=== PATIENT | male | born 1990 | race African-American/Black ===

== ENCOUNTER 2018-06-12 22:57 | Emergency (ER) | payer SELFPAY ==
--- NOTE | 2018-06-13 02:04 | ER Document Report ---
ED General - General Chief Complaint: Foot Pain Stated Complaint: FOOT PAIN Time Seen by Provider: 06/13/18 01:30 Notes: Patient is a 27-year-old male without chronic medical problems who presents with several years of chronic foot issues on the left side. The patient reports that for many years he has gotten cracks between his toes, forearm large corns along the medial side of his great toe and that these areas have become increasingly painful over the last several weeks. He notes a dull, stabbing, constant pain particularly between a wound between his fourth and fifth digits of the left foot. He has not noted any drainage from the ear, spreading redness, fever or constitutional symptoms. Nothing seems to improve or worsening symptoms. He has not seen his general doctor or senior quality control inspector regarding these issues. TRAVEL OUTSIDE OF THE [place] IN LAST 30 DAYS: No - Related Data Allergies/Adverse Reactions: No Known Allergies Allergy (Unverified 06/13/18 01:54) Past Medical History - General Information source: Patient - Social History Smoking Status: Current Every Day Smoker Chew tobacco use (# tins/day): No Frequency of alcohol use: None Drug Abuse: None Family History: Reviewed & Not Pertinent Patient has suicidal ideation: No Patient has homicidal ideation: No Renal/ Medical History: Denies: Hx Peritoneal Dialysis Review of Systems - Review of Systems Notes: Constitutional: Negative for fever. HENT: Negative for sore throat. Eyes: Negative for visual changes. Cardiovascular: Negative for chest pain. Respiratory: Negative for shortness of breath. Gastrointestinal: Negative for abdominal pain, vomiting or diarrhea. Genitourinary: Negative for dysuria. Musculoskeletal: Positive for left foot pain Skin: Negative for rash. Neurological: Negative for headaches, weakness or numbness. 10 point ROS negative except as marked above and in HPI. Physical Exam - Vital signs Vitals: Temp Pulse Resp BP Pulse Ox 97.9 F 86 18 123/69 100 06/12/18 23:27 06/12/18 23:27 06/12/18 23:27 06/12/18 23:27 06/12/18 23:27 Interpretation: Normal Notes: PHYSICAL EXAMINATION: GENERAL: Well-appearing, well-nourished and in no acute distress. HEAD: Atraumatic, normocephalic. EYES: sclera anicteric, conjunctiva are normal. ENT: Moist mucous membranes. NECK: Normal range of motion LUNGS: Normal work of breathing HEART: 2+ DP pulses bilaterally. EXTREMITIES: no pitting or edema. There is a large corn to the medial aspect of the base of the great toe on the left. There is a split of soft tissue with maceration of the associated tissue between the fourth and fifth digits of the left foot without surrounding erythema or drainage. NEUROLOGICAL: No focal neurological deficits. Moves all extremities spontaneously and on command. PSYCH: Normal mood, normal affect. SKIN: Warm, Dry, normal turgor, no rashes or lesions noted. Course - Re-evaluation Re-evalutation: 06/13/18 02:42 Presentation of a well-appearing 27-year-old male in no distress complaining of corns to his feet as well as an open wound between his fourth and fifth digits. This appears to be related to poor fitting shoes as well as excessive moisture to the feet. X-ray without any evidence of osteomyelitis or an osteophyte. I have recommended conservative management and have reviewed this at length with the patient. There is no evidence of associated cellulitis, fungal infection or any alternative life-threatening pathology at this time point. I do not feel any labs are indicated. At this time will discharge with return precautions and follow-up recommendations. Verbal discharge instructions given a the bedside and opportunity for questions given. Medication warnings reviewed. Patient is in agreement with this plan and has verbalized understanding of return precautions and the need for primary care follow-up in the next 24-72 hours. - Vital Signs Vital signs: Temp Pulse Resp BP Pulse Ox 97.9 F 86 18 123/69 100 06/12/18 23:27 06/12/18 23:27 06/12/18 23:27 06/12/18 23:27 06/12/18 23:27 - Diagnostic Test Radiology reviewed: Image reviewed, Reports reviewed Radiology results interpreted by me: 06/13/18 02:42 Left foot x-ray: No acute fracture, osteomyelitis or dislocations. Discharge - Discharge Clinical Impression: Left foot pain, Corns of multiple toes Condition: Good Disposition: HOME, SELF-CARE Additional Instructions: You should use Dermoplast spray which can be purchased [id number] to the cut at the base of your fifth toe to help relieve discomfort. I would recommend applying baby powder or athlete's foot powder to your foot prior to placing the foot in a sock. I would bandage the areas of corns along your great toe. Please be sure that her 2 shoes are fitting properly as it appears that you are having rubbing along the inner aspect of your foot. You should also consider follow-up with podiatry. Your x-ray is normal. Return for any additional concerns he may have including spreading redness, fever, worsening pain, or any other symptoms that are worrisome to you.
--- NOTE | 2018-06-13 03:05 | RADIOLOGY REPORT (SQ) ---
EXAM DESCRIPTION: XR FOOT 1-2 VIEWS COMPLETED DATE/TME: 06/13/2018 01:54 CLINICAL HISTORY: 27 years, Male, great toe pain COMPARISON: None. FINDINGS: 3 views of the left foot. No acute fracture or dislocation. Normal osseous mineralization. The tarsals and metatarsals appear appropriately aligned. IMPRESSION: No acute fracture or dislocation. 2011 [employer]- All Rights Reserved
[2018-06-13 03:22] VITALS: BP 119/66
== END 2018-06-13 03:25 | disposition home or self-care (01) ==
LOC: ER 22:57
DX: L84 Corns and callosities (principal); L98.8 Other specified disorders of the skin and subcutaneous tissue; M79.672 Pain in left foot; F17.200 Nicotine dependence, unspecified, uncomplicated
CPT/HCPCS: 99283

== ENCOUNTER 2018-07-20 15:09 | Emergency (ER) | payer SELFPAY ==
[2018-07-20] MEDS ORDERED: RINGERS SOLUTION,LACTATED 1,000 ML IV ONE (15:57)
[2018-07-20 16:48] LABS: ABSOLUTE BASOPHILS # (AUTO) 0.1 10^3/uL (0.0-0.2); ABSOLUTE EOSINOPHILS # (AUTO) 0.2 10^3/uL (0.0-0.6); ABSOLUTE LYMPHOCYTES (AUTO) 1.8 10^3/uL (0.5-4.7); ABSOLUTE MONOCYTES (AUTO) 0.4 10^3/uL (0.1-1.4); ABSOLUTE NEUT (AUTO) 4.2 10^3/uL (1.7-8.2); EOSINOPHILS % (AUTO) 2.7 % (0-6); HEMATOCRIT 41.7 % (37.9-51.0); HEMOGLOBIN 14.1 g/dL (13.5-17.0); MEAN CORPUSCULAR HEMOGLOBIN 29.5 pg (27.0-33.4); MEAN CORPUSCULAR HGB CONC 33.8 g/dL (32.0-36.0); MEAN CORPUSCULAR VOLUME 87 fl (80-97); MONOCYTES % (AUTO) 6.4 % (3-13); PLATELET COUNT 184 10^3/uL (150-450); RED BLOOD COUNT 4.77 10^6/uL (4.35-5.55); RED CELL DISTRIBUTION WIDTH 13.7 % (11.5-14.0); SEGMENTED NEUTROPHILS % (AUTO) 62.9 % (42-78); TOTAL CELLS COUNTED % (AUTO) 100 %; WHITE BLOOD COUNT 6.6 10^3/uL (4.0-10.5)
[2018-07-20 17:17] LABS: ALANINE AMINOTRANSFERASE 28 U/L (21-72); ALBUMIN 4.3 g/dL (3.5-5.0); ALKALINE PHOSPHATASE 40 U/L (38-126); ANION GAP 8 (5-19); ASPARTATE AMINO TRANSFERASE 21 U/L (17-59); BILIRUBIN,DIRECT 0.4 mg/dL (0.0-0.4); BILIRUBIN,TOTAL 0.7 mg/dL (0.2-1.3); BLOOD UREA NITROGEN 11 mg/dL (7-20); CALCIUM 9.3 mg/dL (8.4-10.2); CARBON DIOXIDE 31 mmol/L (22-30); CHLORIDE 102 mmol/L (98-107); GLUCOSE 102 mg/dL (75-110); POTASSIUM 3.5 mmol/L (3.6-5.0); SODIUM 140.8 mmol/L (137-145); TOTAL PROTEIN 7.2 g/dL (6.3-8.2)
[2018-07-20 17:37] VITALS: BP 113/59
--- NOTE | 2018-07-20 17:53 | ER Document Report ---
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 By the time he came to the ER feeling much more comfortable dizziness and lightheadedness have dissipated. Onset: As above Duration: Just prior to arrival Severity: Mild to moderate Quality: As above Context: As above Exacerbating factor and relieving factors: As above REVIEW OF SYSTEMS: CONSTITUTIONAL : Denies fever, chills, or sweats. Denies recent illness. EENT: Denies eye, ear, throat, or mouth pain or symptoms. Denies nasal or sinus congestion or discharge. Denies throat, tongue, or mouth swelling or difficulty swallowing. CARDIOVASCULAR: Denies chest pain. Denies palpitations or racing or irregular heart beat. Denies ankle edema. RESPIRATORY: Denies cough, cold, or chest congestion. Denies shortness of breath, difficulty breathing, or wheezing. GASTROINTESTINAL: Denies distention. Denies nausea, vomiting, or diarrhea. Denies blood in vomitus, stools, or per rectum. Denies black, tarry stools. Denies constipation. GENITOURINARY: Denies difficulty urinating, painful urination, burning, frequency, blood in urine, or discharge. FEMALE GENITOURINARY: Denies vaginal bleeding, heavy or abnormal periods, irregular periods. Denies vaginal discharge or odor. MUSCULOSKELETAL: Denies back or neck pain or stiffness. Denies joint pain or swelling. SKIN: Denies rash, lesions or sores. HEMATOLOGIC : Denies easy bruising or bleeding. LYMPHATIC: Denies swollen, enlarged glands. NEUROLOGICAL: Denies confusion or altered mental status. Denies passing out or loss of consciousness. Denies dizziness or lightheadedness. Denies headache. Denies weakness or paralysis or loss of use of either side. Denies problems with gait or speech. Denies sensory loss, numbness, or tingling. Denies seizures. PSYCHIATRIC: Denies anxiety or stress. Denies depression, suicidal ideation, or homicidal ideation. ALL OTHER SYSTEMS REVIEWED AND NEGATIVE. PHYSICAL EXAMINATION: GENERAL: Well-appearing, well-nourished and in no acute distress. HEAD: Atraumatic, normocephalic. EYES: Pupils equal round and reactive to light, extraocular movements intact, conjunctiva are normal. ENT: Nares patent, oropharynx clear without exudates. Moist mucous membranes. NECK: Normal range of motion, supple without lymphadenopathy LUNGS: Breath sounds clear to auscultation bilaterally and equal. No wheezes rales or rhonchi. HEART: Regular rate and rhythm without murmurs ABDOMEN: Soft, nontender, nondistended abdomen. No guarding, no rebound. No masses appreciated. Examination of genitals-deferred Musculoskeletal: Normal range of motion, no pitting or edema. No cyanosis. NEUROLOGICAL: Cranial nerves grossly intact. Normal speech, normal gait. Normal sensory, motor exams PSYCH: Normal mood, normal affect. SKIN: Warm, Dry, normal turgor, no rashes or lesions noted. Dictation was performed using [employer] voice recognition software TRAVEL OUTSIDE OF THE [place] IN LAST 30 DAYS: No - HPI Notes: Dictated - Related Data Allergies/Adverse Reactions: No Known Allergies Allergy (Unverified 06/13/18 01:54) Past Medical History - Social History Smoking Status: Current Every Day Smoker Frequency of alcohol use: Occasional Drug Abuse: None Family History: Reviewed & Not Pertinent Patient has suicidal ideation: No Patient has homicidal ideation: No Renal/ Medical History: Denies: Hx Peritoneal Dialysis Past Surgical History: Reports: Hx Cardiac Surgery - artificial valve repair Review of Systems - Review of Systems Notes: Dictated Physical Exam - Vital signs Vitals: Temp Pulse Resp BP Pulse Ox 98.2 F 84 18 91/55 L 98 07/20/18 15:22 07/20/18 15:22 07/20/18 15:22 07/20/18 15:22 07/20/18 15:22 - Notes Notes: Dictated Course - Re-evaluation Re-evalutation: 07/20/18 17:56 He refused IV fluids - Vital Signs Vital signs: Temp Pulse Resp BP Pulse Ox 98.2 F 84 18 91/55 L 98 07/20/18 15:22 07/20/18 15:22 07/20/18 15:22 07/20/18 15:22 07/20/18 15:22 - Laboratory Result Diagrams: 07/20/18 16:35 07/20/18 16:35 Laboratory results interpreted by me: 07/20/18 16:35 Potassium 3.5 L Carbon Dioxide 31 H Discharge - Discharge Clinical Impression: Dehydration due to radiation Condition: Fair Disposition: HOME, SELF-CARE Instructions: Dehydration ([facility])
--- NOTE | 2018-07-21 20:56 | EKG REPORT ---
SEVERITY:- BORDERLINE ECG - SINUS RHYTHM BORDERLINE T ABNORMALITIES, INFERIOR LEADS : Confirmed by: Etelvina Estes MD 21-Jul-2018 20:55:28
== END 2018-07-20 17:57 | disposition home or self-care (01) ==
LOC: ER 15:09
DX: E86.0 Dehydration (principal); R42 Dizziness and giddiness; R11.2 Nausea with vomiting, unspecified; F17.200 Nicotine dependence, unspecified, uncomplicated
CPT/HCPCS: 36415; 80053; 85025; 93005; 93010; 99284